=== PATIENT | female | born 1960 | race Caucasian/White ===

== ENCOUNTER 2024-04-02 19:44 | Emergency (ER) | payer BC ==
[2024-04-02] MEDS: Ibuprofen 600 MG Tab PO ONE (21:33)
== END 2024-04-02 23:15 | disposition home or self-care (01) ==
LOC: EDBD 19:44 → DL.ED 19:44
DX: S82.842A Displaced bimalleolar fracture of left lower leg, initial encounter for closed fracture (principal); Z88.0 Allergy status to penicillin; Z87.891 Personal history of nicotine dependence; W18.49XA Other slipping, tripping and stumbling without falling, initial encounter
CPT/HCPCS: 29515; 99283; A9270; 73610-LT